=== PATIENT | female | born 1940 | race Hispanic/Latino ===

== ENCOUNTER 2020-12-02 18:36 | Observation (INO) | payer MEDICARE, MEDICAID ==
[2020-12-02 20:26] LABS: #Eosinphils 0.1 thou/uL (0.0-0.7); #Monocytes 0.8 thou/uL (0.11-0.59); #Neutrophils 8.2 thou/uL (1.40-6.50); %Basophils 0.5 % (0.0-1.0); %Eosinophils 0.6 % (0.0-10.0); %Lymphocytes 10.1 % (21.0-51.0); %Monocytes 7.9 % (0.0-10.0); Hemoglobin 12.8 g/dL (12.0-16.0); Mean Corpuscular HGB CONC 34.1 g/dL (32.0-36.0); Mean Corpuscular Hemoglobin 31.1 pg (27.0-31.0); Mean Corpuscular Volume 91.4 fL (78.0-98.0); Mean Platelet Volume 8.4 fL (7.4-10.4); Platelet Count 149 thou/uL (130-400); RBC Distribution Width 14.4 % (11.5-14.5); Red Blood Cell (RBC) Count 4.11 mill/uL (4.20-5.40); White Blood Cell (WBC) Count 10.1 thou/uL (4.8-10.8)
[2020-12-02] MEDS ORDERED: Ondansetron ODT 4 MG TAB PO PRN (20:31)
[2020-12-02] MEDS ORDERED: hydrALAZINE 20 MG/ML VIAL SLOW IVP PRN (20:31)
[2020-12-02] MEDS ORDERED: Dextrose 50% Abboject 50 ML SYRINGE SLOW IVP PRN (20:31)
[2020-12-02] MEDS ORDERED: Dextrose 5% in Water 1,000 ML IV PRN (20:31)
[2020-12-02] MEDS ORDERED: Ondansetron PF 4 MG/2 ML Vial IVP PRN (20:31)
[2020-12-02 20:34] LABS: PTT 25.8 sec (22.9-36.1); Prothrombin Time 13.4 sec (12.0-14.7)
[2020-12-02 20:48] LABS: ALT (SGPT) 16 U/L (8-55); AST (SGOT) 22 U/L (5-34); Albumin 4.4 g/dL (3.4-4.8); Alkaline Phosphatase 101 U/L (40-110); Anion Gap 16 mmol/L (10-20); BUN (Urea Nitrogen) 20 mg/dL (9.8-20.1); Bilirubin, Total 0.7 mg/dL (0.2-1.2); Calc. Creatinine Clearance 0 mL/min (70-130); Calcium 8.8 mg/dL (7.8-10.44); Carbon Dioxide 20 mmol/L (23-31); Chloride 111 mmol/L (98-107); Globulin 2.7 g/dL (2.4-3.5); Glucose 130 mg/dL (83-110); Potassium 3.9 mmol/L (3.5-5.1); Protein, Total 7.1 g/dL (5.8-8.1); Sodium 143 mmol/L (136-145)
[2020-12-03] MEDS: Acetaminophen 500 MG TAB PO SCH ×3 (01:35→09:44)
[2020-12-03] MEDS: Famotidine 20 MG TAB PO SCH ×2 (01:35→09:44)
[2020-12-03 06:49] VITALS: BMI 30.4
[2020-12-03] MEDS ORDERED: FLU VACC QS2020-21(65YR UP)/PF 240 MCG/0.7 ML SYRINGE IM ONE (07:00)
[2020-12-03 11:42] VITALS: BP 127/66; TEMP 97.9
== END 2020-12-03 14:30 | disposition home or self-care (01) ==
LOC: ERS 18:36 → SJJU 20:31
PROVIDERS: ADMIT Surgery; ATTEND Surgery
DX: S06.5X0A Traumatic subdural hemorrhage without loss of consciousness, initial encounter (principal); S06.6X0A Traumatic subarachnoid hemorrhage without loss of consciousness, initial encounter; M19.90 Unspecified osteoarthritis, unspecified site; W01.0XXA Fall on same level from slipping, tripping and stumbling without subsequent striking against object, initial encounter
CPT/HCPCS: 70450 ×2; 71045; 72125; 80053; 84484; 85025; 85610; 85730; 86850; 86900; 86901; 93005; 97116; 97139; 99285; G0378 ×2; 36415

== ENCOUNTER 2020-12-30 10:09 | Outpatient (CLI) | payer MEDICARE, MEDICAID | END 2020-12-30 10:10 | disposition home or self-care (01) | LOC: TBSIIMAG 10:09 | PROVIDERS: ATTEND Surgery | DX: E27.8 Other specified disorders of adrenal gland (principal); I62.9 Nontraumatic intracranial hemorrhage, unspecified | CPT/HCPCS: 70450 ==

== ENCOUNTER 2021-10-17 11:23 | Outpatient (CLI) | payer MEDICARE, MEDICAID | END 2021-10-17 11:24 | disposition home or self-care (01) | LOC: BICRAD 11:23 | PROVIDERS: ATTEND Family Medicine | DX: M54.50 Low back pain, unspecified (principal); M25.552 Pain in left hip; M25.562 Pain in left knee; R91.8 Other nonspecific abnormal finding of lung field; M41.9 Scoliosis, unspecified; M47.815 Spondylosis without myelopathy or radiculopathy, thoracolumbar region; M16.12 Unilateral primary osteoarthritis, left hip; R93.7 Abnormal findings on diagnostic imaging of other parts of musculoskeletal system; M25.752 Osteophyte, left hip; M79.89 Other specified soft tissue disorders | CPT/HCPCS: 72100 ==

== ENCOUNTER 2022-04-16 09:47 | Outpatient (CLI) | payer OTHER | END 2022-04-16 09:48 | disposition home or self-care (01) | LOC: BICCT 09:47 | PROVIDERS: ATTEND Internal Medicine | DX: R91.8 Other nonspecific abnormal finding of lung field (principal); I25.10 Atherosclerotic heart disease of native coronary artery without angina pectoris; J98.4 Other disorders of lung | CPT/HCPCS: 71250 ==